=== PATIENT | female | born 1970 | race Caucasian/White ===

== ENCOUNTER 2019-06-28 17:53 | Emergency (ER) | payer MEDICAID, OTHER ==
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
[2019-06-28] MEDS ORDERED: Ketorolac 30 MG/ML SDV IM ONE (20:24)
[2019-06-28] MEDS ORDERED: Cyclobenzaprine 10 MG Tab ONE (20:37)
== END 2019-06-28 20:47 | disposition home or self-care (01) ==
LOC: DL.ED 17:53
DX: S06.0X0A Concussion without loss of consciousness, initial encounter (principal); S39.012A Strain of muscle, fascia and tendon of lower back, initial encounter; S80.01XA Contusion of right knee, initial encounter; S80.02XA Contusion of left knee, initial encounter; Z88.0 Allergy status to penicillin; V63.5XXA Driver of heavy transport vehicle injured in collision with car, pick-up truck or van in traffic accident, initial encounter
CPT/HCPCS: 70450; 72100; 72125; 73562; 73610; 96372; 99284; J1885; 29515